=== PATIENT | male | born 1940 | race Caucasian/White ===

== ENCOUNTER → 2020-07-05 | Outpatient (CLI) | payer MEDICARE ==
[~2020-07-05] MED LIST: CLINDAMYCIN LOTION TOP; CLOB5CR TOP; E-Z-GAS II EFFERVESCENT PACKET (SODIUM BICARB./CITRIC ACID/SIMETHICONE) As Ordered ONE; E-Z-HD 98% w/w 340GM SUSP BTL As Ordered ONE; E-Z-PAQUE 96% w/w SUSP 176GM BTL As Ordered ONE; FISH5CAP PO; FLON0.054; IBUPOTC PO; TOBRSUS41 OU; [UNRECOGNIZED DRUG - OTHER] OU
--- NOTE | 2020-07-05 17:16 | REP ---
INDICATION: DYSPHAGIA. COMPARISON: None TECHNIQUE: This procedure was performed by Julienne Rivas [facility], under the direct supervision of Dr. Pichardo. Images were reviewed with Dr. Pichardo prior to dictation. Liquid barium was given in the erect position in order to perform a single contrast esophagram. FINDINGS: A single view PA chest x-ray is submitted as a wardsperson film. The superior mediastinal structures are midline. The heart size is within normal limits. The lungs are clear. The oral and pharyngeal stages of deglutition demonstrated laryngeal penetration the progresses to aspiration. Esophageal transport is prompt and efficient and there is no evidence of esophagitis, stricture, or mucosal ring. Due to the amount of aspiration without a cough response the procedure was stopped prior to evaluation for hiatal hernia or for gastroesophageal reflux could be done. IMPRESSION: 1. Aspiration without a cough response. 2. Limited esophagram due to aspiration. 0.1 minutes of fluoroscopy time was utilized for this procedure. Some fluoroscopic images are performed with last image hold technology. These images require no additional radiation. <Electronically signed by Julienne Rivas > 07/05/20 1656 <Electronically signed by Mario Pichardo > 07/05/20 1712
== END ==
LOC: M RAD 07:53
PROVIDERS: ATTEND Specialist
DX: R13.10 Dysphagia, unspecified (principal)

== ENCOUNTER → 2020-08-31 | Outpatient (CLI) | payer MEDICARE ==
--- NOTE | 2020-08-31 18:43 | REP ---
INDICATION: DYSPHAGIA. COMPARISON: The exam is compared to a previous esophagram performed on 07/05/2020. TECHNIQUE: This procedure was performed under the direct supervision of Dr. Hope. Images were reviewed with Dr. Hope. Liquid barium was administered in the erect position in order to perform a single contrast esophagram examination.. 0.1 minutes of fluoro time was utilized for this procedure. FINDINGS: A single view PA chest x-ray is submitted as a business continuity manager film. There is no change compared to a previous chest x-ray performed on 07/05/2020. During the oral and pharyngeal stages of deglutition the patient aspirated immediately. This is unchanged to the previous examination. The examination was then discontinued. The epiglottis is difficult to visualize, however, may not move appropriately. IMPRESSION: The patient aspirated the barium immediately. This is unchanged compared to the previous examination. The examination was then discontinued. The epiglottis is difficult to visualize, however, may not move appropriately. <Electronically signed by Drew Sanders > 08/31/20 1522 <Electronically signed by Jose Hope > 08/31/20 [id number]
== END ==
LOC: M RAD 08:56
PROVIDERS: ATTEND Specialist
DX: R13.10 Dysphagia, unspecified (principal)

== ENCOUNTER → 2020-09-15 | Outpatient (CLI) | payer MEDICARE ==
[~2020-09-15] MED LIST changes: +AZEL0.055 NARES; -E-Z-GAS II EFFERVESCENT PACKET (SODIUM BICARB./CITRIC ACID/SIMETHICONE) As Ordered ONE; -E-Z-HD 98% w/w 340GM SUSP BTL As Ordered ONE; -E-Z-PAQUE 96% w/w SUSP 176GM BTL As Ordered ONE; +ESOM0.1C PO; +FLUTISP; +HYDR12.55 PO; +LEVOTAB10 PO; +LOSA50TA5 PO; +NOXI1TAB PO; +NYST50SS SS; +OMEP40CA97 PO; +SING5CHW23 PO
== END ==
LOC: M LABSMTC 10:02
PROVIDERS: ATTEND Anesthesiology
DX: Z01.818 Encounter for other preprocedural examination (principal); Z11.52 Encounter for screening for COVID-19

== ENCOUNTER 2020-09-20 08:34 | Day surgery (SDC) | payer MEDICARE ==
[~2020-09-20] VITALS: Ht 167.6 cm; Wt 81.2 kg
[~2020-09-20 08:34] MED LIST changes: +LR 1,000 ML IV ONE
--- NOTE | 2020-09-20 10:25 | ECGEPIP ---
[facility] Test Date: 2020-09-20 Pat Name: NAOMI PERDUE Department: Room: - Gender: Male Taproom Attendant: ABIOLA : 1940 Requested By: LUCIA Rodríguez Order Number: [id number] Reading MD: Kelly Mckinley Measurements Intervals [place] Rate: 86 P: 50 WV: 144 QRS: -67 QRSD: 134 T: -9 QT: 382 QTc: 457 Interpretive Statements Normal sinus rhythm Left axis deviation LEFT ANTERIOR FASCICULAR BLOCK //Right bundle branch block/POSSIBLE RVH QTC PROLONGED REPOLAR CHANGES ANTERIOR LEADS ASSOC WITH RIGHT BUNDLE BRANCH BLOCK OR RIGHT VENTRICULAR HYPERTROPHY EXTEND OUT TO V4 -ABNORMAL NO PRIOR Electronically Signed on 09-20-2020 10:25:23 EDT by Kelly Mckinley
[2020-09-20] MEDS ORDERED: propofoL 200 MG/20 ML VIAL As Ordered ONE (11:04)
[2020-09-20] MEDS ORDERED: ROCURONIUM BROMIDE 50 MG/5 ML VIAL As Ordered ONE (11:05)
[2020-09-20] MEDS ORDERED: fentaNYL 100 MCG/2 ML INJECTION (J3010) As Ordered ONE (11:05)
[2020-09-20] MEDS ORDERED: dexameTHASONE 4 MG/ML 1ML VIAL (J1100 PER 1MG) As Ordered ONE (11:05)
[2020-09-20] MEDS ORDERED: LIDOCAINE 2% 100MG/5ML SDV (FOR ANES.) As Ordered ONE (11:05)
[2020-09-20] MEDS ORDERED: ONDANSETRON 4MG/2ML VIAL As Ordered ONE (11:05)
[2020-09-20] MEDS ORDERED: OXYMETAZOLINE 0.05% NASAL SPRAY (AFRIN) As Ordered ONE (11:52)
[2020-09-20] MEDS ORDERED: CETACAINE SPRAY 5GM As Ordered ONE (11:52)
[2020-09-20] MEDS ORDERED: EPINEPHrine 1MG/ML INJ 30ML MD-VIAL As Ordered ONE (11:52)
[2020-09-20] MEDS ORDERED: SUGAMMADEX SODIUM 500 MG/5 ML VIAL (BRIDION) As Ordered ONE (12:34)
[2020-09-20] MEDS ORDERED: ACETAMINOPHEN 1000MG 100ML IV BTL (OFIRMEV) (J0131 PER 10MG) As Ordered ONE (12:34)
[2020-09-20] MEDS ORDERED: METOCLOPRAMIDE INJ 10MG/2ML VIAL (J2765 PER 1) As Ordered ONE (12:34)
[2020-09-20] MEDS ORDERED: METOCLOPRAMIDE INJ 10MG/2ML VIAL (J2765 PER 1) IV PRN (13:15)
[2020-09-20] MEDS ORDERED: LR 1,000 ML IV SCH (13:15)
[2020-09-20] MEDS ORDERED: ONDANSETRON 4MG/2ML VIAL IV PRN (13:15)
[2020-09-20] MEDS ORDERED: fentaNYL 100 MCG/2 ML INJECTION (J3010) IV PRN (13:15)
[2020-09-20] MEDS ORDERED: ACETAMINOPHEN 500 MG TAB PO PRN (13:20)
[2020-09-20 14:05] VITALS: BP 133/72
--- NOTE | 2020-09-22 13:52 | RO ---
OPERATIVE NOTE DATE OF OPERATION: 09/20/2020 PREOPERATIVE DIAGNOSIS: Right hypopharyngeal mass. POSTOPERATIVE DIAGNOSIS: Right hypopharyngeal mass. PROCEDURE: Direct laryngoscopy with biopsy of a vallecular lower pharyngeal mass. SURGEON: Darin Faust M.D. SHOE FOLDER: None. ANESTHESIA: General. INDICATIONS FOR PROCEDURE: This is an 80-year-old year who presents with a sore throat for one year that seemed to be localized more to the right side. Office examination suggested the presence of fullness of the lateral aspect of the right vallecula along the base of tongue and lateral pharyngeal wall. Because of this suspicious area and failure to respond to any medical management, he is brought to the operating room for direct laryngoscopy. DESCRIPTION OF PROCEDURE: After satisfactory general endotracheal anesthesia was administered, the patient was placed in the usual position for head and neck endoscopy. Double-lightened Dedo laryngoscopy was inserted into the oropharynx. The scope was gently advanced forward into the center of the oropharynx and down behind the base of the tongue. Inspection of the left side was done first, as there appeared to be an area of friable tissue on the right that head already led to some bleeding. Complete inspection as done down to the glottis of which though it appeared somewhat mildly edematous posteriorly, it appeared to be normal. The scope was then advanced through the right vallecula lateral nasal wall and there appeared to be a granular, friable, and more ulcerative area than exophytic. There was no discrete formal fungating mass, but just an area of grainy tissue. It was this area that was biopsied with several punch biopsies. The scope was then advanced further. The epiglottis appeared to be free of any disease. Location of this lesion was felt to be the right lateral base of tongue and possible pharyngeal wall. After several biopsies were taken, the throat was suctioned and the scope was then removed. The patient was then awakened, extubated, and sent to recovery in satisfactory position pending results of the biopsy.
[2020-10-05] MEDS ORDERED: HYDR1SOL PO (09:20)
[2020-10-05] MEDS ORDERED: HYDR12CA PO (10:27)
[2020-10-05] MEDS ORDERED: AZEL0.05 OU (10:27)
[2020-10-05] MEDS ORDERED: AZEL0.055 NARES (10:27)
[2020-10-05] MEDS ORDERED: LOSA50TA88 PO (10:27)
[2020-10-05] MEDS ORDERED: D31000TA2 PO (10:27)
[2020-10-05] MEDS ORDERED: COVI30VI IM (10:27)
== END 2020-09-20 14:05 | disposition home or self-care (01) ==
LOC: M SDC 08:34
PROVIDERS: ATTEND Specialist
DX: C01 Malignant neoplasm of base of tongue (principal); R07.0 Pain in throat; R13.10 Dysphagia, unspecified; I10 Essential (primary) hypertension; M19.90 Unspecified osteoarthritis, unspecified site; R51.9 Headache, unspecified; Z85.46 Personal history of malignant neoplasm of prostate; Z92.3 Personal history of irradiation; Z79.899 Other long term (current) drug therapy
CPT/HCPCS: 31535; 88305; 88341; 88342; 93005; J0131; J1100; J2405; J2765; J3010

== ENCOUNTER → 2020-10-05 | Outpatient (CLI) | payer MEDICARE ==
[~2020-10-05] MED LIST changes: +AZEL0.05 OU; +COVI30VI IM; +D31000TA2 PO; +HYDR12CA PO; +HYDR1SOL PO; +LOSA50TA88 PO; -LR 1,000 ML IV ONE
--- NOTE | 2020-10-05 11:36 | RADONC.CN ---
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 He is seen for consideration of RT or chemoradiation to treat this. Diagnosis/Treatment History Oncologic History History of meningioma s/p resection @ [facility] 2018 History of prostate cancer s/p RT @ [facility] 2015 Early 2020: Notes onset of dysphagia to solids and liquids as well as pain in the throat and 30 lb unintentional weight loss. 07/05/20: Barium swallow (Dr. Faust) showing aspiration. 08/31/20: Repeat barium swallow with aspiration. 09/20/20: DL and biopsy of tongue base showing SCC, HPV/P16 pending (confirmed lab is doing this) No sectional imaging to date. Interval History Here with his , lives in the [facility]. He reports he is unable to take solid food without coughing. Currently intake is 2 boost/ensure daily. Has pain with swallowing. No trouble breathing or CP. He has some word finding difficulties since his craniotomy for meningioma. He used to lift weight and weigh 210 lbs, now ~180 lbs. Still has good energy levels, likes to work outdoors. Has a dentist in [place]. Past Medical History: Arthritis GERD HTN Prostate cancer Meningioma Past Surgical History: Craniotomy 2019 Family History: Sister lymphoma Social History: Never smoker Non-drinker Allergies / Meds Allergies: Coded Allergies: No Known Allergies (Unverified , 09/17/20) Home Meds Reported Medications Hydrocodone/Acetaminophen (Hydrocodone-Acetamn 7.5-325/15) 118 Ml Solution, 15 ML PO, ML 10/05/20 Losartan/Hydrochlorothiazide (Losartan-Hctz 50-12.5 mg Tab) 1 Each Tablet, 1 TAB PO DAILY, TAB 09/16/20 Montelukast Sodium (Singulair) 5 Mg Tab.chew, 10 MG PO DAILY, CHW 09/16/20 Fluticasone Propionate (Fluticasone Propionate) 16 Gm [place].susp, 1 SPRAY NA BID, #1 BOTTLE 09/16/20 Azelastine HCl (Azelastine HCl) 0.15% [place].pump, 2 SPRAY NARES BID for 30 Days, #30 ML 09/16/20 Levocetirizine Dihydrochloride (Levocetirizine Dihydrochloride) 5 Mg Tablet, 5 MG PO DAILY, TAB 09/16/20 Review of Systems Constitutional: Reports: Weight Loss; Denies: Fatigue Eyes: Denies: Pain HEENT: Reports: Ear Pain, Dysphagia, Sore Throat; Denies: Head Aches, Epistaxis Skin: Denies: Rash Pulmonary: Denies: Dyspnea, Cough Cardiovascular: Denies: Chest Pain, Palpitations Gastrointestinal: Denies: Abdominal Pain Genitourinary: Denies: Dysuria, Frequency Hematologic: Denies: Bruising Endocrine: Denies: Cold Intolerance Neurological: Reports: Change in Speech; Denies: Weakness, Numbness Psych: Reports: Mood Normal Vital Signs Ht 66 Wt 180 BMI 29 T 97.4 P 97 RR 16 BP 140/83 O2 98% Pain 2 Fatigue 0 General Exam: Positive: Alert, Cooperative, No Acute Distress Eye Exam: Positive: PERRLA, EOMI ENT EXAM: Positive: Atraumatic, Mucous membr. moist/pink, Tongue Midline, Other ENT (Complete oral cavity exam performed: There are no visible or palpable lesions in the buccal mucosa alveolar ridges, or FOM on bimanual exam. There are several broken and carious teeth. There are no lesions palpable in the tonsillar fossae, the tongue base was unable to be palpated due to gag. ) Neck Exam: Positive: Supple, Lymphadenopathy (There is a palpable right level II node, firm but mobile. There are 2 palpable left cervical nodes, level II superiorly and level III inferiorly. Both are firm and mobile. ) Chest Exam: Positive: Clear to auscultation, Normal air movement Heart Exam: Positive: Rate Normal, Regular Rhythm Abdomen Exam: Positive: Soft Extremity Exam: Negative: Edema Skin Exam: Positive: Nl turgor and temperature Neuro Exam: Positive: Normal Gait; Negative: Normal Speech (Mild word finding difficulties noted) Psych Exam: Positive: Mental status NL, Mood NL, Oriented x 3 Other Physical Findings Laryngoscopy: Patient provided verbal consent to be scoped. Cetacaine was introduced in the right nostril for anesthesia. The scope was inserted, there was copious mucus in the nasal vestibule. The scope was withdrawn and the patient cleared his nose. The scope was then easily passed to the right nasopharynx, there were no lesions present, the torus tubarius was visualized. The scope was then passed to the posterior wall which was pink and well-hydrated with no adherent mucus. The oropharynx was entered, there was marked asymmetry of the tongue base, the left appeared red and edematous and the right appeared sunken, not ulcerated with overlying pale mucosa. No exudate was appreciated. Midline, the vallecula had a globular erythematous appearance and this asymmetric mass abutted the lingual epiglottis directly. The epiglottis itself was red and edematous. The larynx was well visualized and was freely mobile with phonation, the BL pyriform sinuses and AE folds were well visualized and free of lesions. The scope was withdrawn and the patient tolerated this procedure well. Diagnostic and Laboratory Diagnostic Review Radiologic images, relevant labs and pathology reports were personally reviewed and discussed with Mr. Pascal. Assessment and Plan Impression Mr. Pascal is a 80 year old male never smoker with a recently diagnosed [id number] SCC of the base of tongue. He is seen for consideration of RT or chemoradiation to treat this. Stage [id number] tongue base SCC HPV pending Performance Status ECOG 1 Plan We had an extensive discussion with Mr. Pascal regarding the diagnosis at hand and available therapeutic options. He has a biopsy proven lesion reported as involving the right base of tongue, which appears abnormal on my exam today. I suspect the true extent of the lesion is greater than expected due to the surrounding inflammation I see in the contralateral structures, which in their own right appear abnormal as well. HPV status is pending. I emailed the lab to confirm this. I explained that in a never smoker one might expect HPV+ disease which would be favorable prognostically. He also has palpable lymph nodes, bilaterally, which raises concern for N2c (or N1 disease if HPV+) which would necessitate concurrent chemotherapy to effect the best chance of cure. He is seeing Dr. Koo for this later today. He has had no sectional imaging to date, and based on the exam findings, concern for primary bulk, and bilateral cervical nodes palpable, he will need both diagnostic CT neck with contrast and PET-CT to elucidate the extent of disease and inform treatment recommendations. Both CT and PET-CT will aid in radiation planning as well. For treatment I recommend 70 Gy in 35 fractions with VMAT planning. I anticipate need of weekly cisplatin but a final decision on this will be contingent upon imaging and Dr. Koo's assessment. We discussed the logistics of receiving radiation therapy in detail including the need for a 1-time planning session. Prior to simulation he needs dental clearance, for this they would like to go to their family dentist in [place]. I anticipate he will need extractions due to several broken teeth. Thus simulation is anticipated in ~ 2 weeks time to allow healing. We reviewed the side effects of treatment pain, difficulty swallowing, dysgeusia, xerostomia, fibrosis, ORN, fatigue, and lymphedema. Because of his clear aspiration on barium swallow, I will refer him to SCENIC DESIGNER immediately. I will also have a PEG tube placed prior to treatment. In the m eantime I encouraged him to drink 4-5 ensure daily, to stabilize his weight loss. After discussing the risks, benefits and alternatives to radiation therapy, Mr. Pascal was amenable to pursuing radiotherapy. All questions were answered to the patient's satisfaction. We instructed the patient that if there were any questions,concerns or changes in clinical status in the interim to contact us. Recommendations 70 Gy in 35 fractions with VMAT Dental clearance SCENIC DESIGNER referral PEG tube CT neck PET-CT Simulation pending imaging and dental clearance Chemotherapy per Dr. Koo Billing Statement Total time of [61] minutes was spent preparing for the visit [4], obtaining HPI [7], examining the patient [9], reviewing diagnostic tests [3], discussing management options [20], coordinating care [5], and writing this note [13]. BROOKLYN ODOM MD October 05, 2020 11:34
--- NOTE | 2020-10-06 08:37 | RADENCPD ---
Date/Time of Encounter Date of Encounter: October 06, 2020 Time of Encounter: 08:34 Encounter Mr. Pascal's cancer is strongly P16+, thus associated with HPV, which fits the clinical vignette very well. Given this I conveyed by phone that the prognosis is better even if he has el involvement. Clinical stage at the moment based on my exam yesterday is [id number] HPV+ stage II BROOKLYN ODOM MD October 06, 2020 08:37
== END ==
LOC: M ONCR 08:12
PROVIDERS: ATTEND General Practice
DX: C02.9 Malignant neoplasm of tongue, unspecified (principal); Z86.011 Personal history of benign neoplasm of the brain; Z85.46 Personal history of malignant neoplasm of prostate

== ENCOUNTER → 2020-10-14 | Outpatient (CLI) | payer MEDICARE ==
[~2020-10-14] MED LIST changes: +ONDA4TAB6 PO; +OXYC10TA12 PO
--- NOTE | 2020-10-14 16:08 | RADENCPD ---
Date/Time of Encounter Date of Encounter: October 14, 2020 Time of Encounter: 16:03 Encounter Duke came in for a brief follow up today due to complaint of increased swelling in the left neck and also increased dysphagia. notes he has been choking on thin liquids in the last 2 days. Duke reports that overall his pain with swallowing is improved with the oxycodone I prescribed but that he finds it hard to swallow still. PEG tube placement is pending. As is neck imaging. On exam he has a firm node in the right upper cervical chain as well as a large matted left level III conglomerate as before. The left sided node is tender. We discussed dietary modification and the necessity of PEG tube to limit his aspiration. ACID PUMPER evaluation is pending still. Also pending are his dental extractions which are necessary prior to chemoradiation. I suggested thick-it be mixed with his ensure, and that he limit his intake to soft foods and thickened liquids which are high in caloric content for now. I will follow up with him next week. BROOKLYN ODOM MD October 14, 2020 16:08
== END ==
LOC: M ONCR 14:34
PROVIDERS: ATTEND General Practice
DX: C01 Malignant neoplasm of base of tongue (principal)

== ENCOUNTER → 2020-10-19 | Outpatient (POV) | payer MEDICARE ==
[~2020-10-19] VITALS: Ht 167.6 cm; Wt 80.9 kg
[2020-10-19 10:15] VITALS: BP 146/79
--- NOTE | 2020-10-19 14:55 | IRCOV ---
[facility] IR Consult Office Visit IR Consult Office Visit DATE: October 19, 2020 REASON FOR CONSULTATION/CHIEF COMPLAINT: PEG tube placement. HISTORY OF PRESENT ILLNESS: 80-year-old male with 4 month long history of progressive difficulty swallowing and recent diagnosis of tongue cancer, is referred for gastrostomy catheter placement. Patient reports difficulty swallowing ensure, drinking milk or boost, which result in fits of coughing and sensation of choking. He has lost 30 pounds in 3 months. He is scheduled to undergo a PET scan, dental extraction and then start radiation therapy. Patient denies prior gastric ulcer, hematemesis, melena or abdominal surgeries. Patient denies gastroesophageal reflux. ALLERGIES: Please see below. HOME MEDICATIONS: Please see below. PAST MEDICAL HISTORY: Meningioma, surgically resected in 2019 Prostate cancer Arthritis GERD Hypertension PAST SURGICAL HISTORY: Craniotomy 2019 FAMILY HISTORY: Noncontributory. SOCIAL HISTORY: Never smoked. No alcohol or drugs. REVIEW OF SYSTEMS: Otherwise negative. PHYSICAL EXAMINATION: VITAL SIGNS: Please see below. GENERAL APPEARANCE: Appears well. Comfortable at rest. Normal speech. HEENT: No scleral icterus. RESPIRATORY: Normal breathing at rest. CARDIOVASCULAR: Normal rate. ABDOMEN: Non-distended. Soft nontender. No pulsatile mass. EXTREMITIES: Moving all 4 extremities. NEUROLOGICAL: Alert and oriented. PSYCHIATRIC: Appropriate to circumstance. LABORATORY DATA: 10/05/2020 hemoglobin 14.3 hematocrit 44.6 WBC 9.7 platelets 335 sodium 140 potassium 4.2 BUN 19 creatinine 0.78 Imaging: I personally reviewed the CT abdomen without and with contrast performed 09/12/2013. Stomach located below the diaphragm. ASSESSMENT/PLAN: 80-year-old male with tongue cancer, progressive difficulty swallowing, aspiration and weight loss, scheduled to undergo radiation therapy. We discussed the risks and benefits of gastrostomy placement and patient is agreeable to proceed. We'll schedule the patient for a G-tube placement. I spent 30 minutes reviewing patient's records, imaging and in consultation with the patient. Thank you for this referral. Cc Dr. Maharaj Allergies Coded Allergies: No Known Allergies (Unverified , 09/17/20) Home Medications Scheduled Azelastine HCl (Azelastine HCl), 1 DROP OU BID, (Reported) Azelastine HCl (Azelastine HCl), 2 SPRAY NARES BID, (Reported) Cholecalciferol (Vitamin D3) (Vitamin D3), 5,000 UNITS PO BID, (Reported) Fluticasone Propionate (Fluticasone Propionate), 2 SPRAY NA DAILY, (Reported) Hydrochlorothiazide (Hydrochlorothiazide), 1 CAP PO DAILY, (Reported) Levocetirizine Dihydrochloride (Levocetirizine Dihydrochloride), 5 MG PO DAILY, (Reported) Losartan Potassium (Losartan Potassium), 1 TAB PO DAILY, (Reported) Montelukast Sodium (Singulair), 10 MG PO DAILY, (Reported) Scheduled PRN Ondansetron (Ondansetron Odt), 4 MG PO TIDP PRN for nausea/vomiting Oxycodone HCl (Oxycodone HCl), 1 TAB PO QIDP PRN for pain Miscellaneous Medications Covid-19 Vacc, Mrna([employer])/Pf ([employer] Covid19 Vacc (Unapprov)), 30 MCG IM, (Reported) Discontinued Medications Hydrocodone/Acetaminophen (Hydrocodone-Acetamn 7.5-325/15), 5-10 ML PO Q6HP PRN for PAIN LEVEL 5-10, (Reported) VS, I&O, 24H, Fishbone Vital Signs/I&O Vital Signs Date Time Temp Pulse Resp B/P (MAP) Pulse Ox O2 Delivery O2 Flow Rate FiO2 10/19/20 10:15 98.1 85 80 146/79 (101) 97 [address] Air RO YADAV MD October 19, 2020 14:55
== END ==
LOC: M IRPOV 09:49
PROVIDERS: ATTEND Radiology Diagnostic Radiology
DX: C02.9 Malignant neoplasm of tongue, unspecified (principal); R13.10 Dysphagia, unspecified; R63.4 Abnormal weight loss; K21.9 Gastro-esophageal reflux disease without esophagitis; I10 Essential (primary) hypertension; Z79.899 Other long term (current) drug therapy; Z85.46 Personal history of malignant neoplasm of prostate

== ENCOUNTER 2020-10-26 09:34 | Emergency (ER) | payer MEDICARE ==
[~2020-10-26] VITALS: Ht 167.6 cm; Wt 76.7 kg
[~2020-10-26 09:34] MED LIST changes: +OMEP40CA4 PO; -OMEP40CA97 PO
[2020-10-26] MEDS ORDERED: NS 1,000 ML IV ONE (11:25)
[2020-10-26] MEDS ORDERED: ONDANSETRON 4MG/2ML VIAL IV ONE (11:25)
--- NOTE | 2020-10-26 12:05 | REP ---
INDICATION: nausea, vomiting ? aspiration COMPARISON: None. TECHNIQUE: Upright view of the chest with supine and upright views of the abdomen and pelvis. FINDINGS: Frontal upright view of the chest demonstrates no acute cardiopulmonary process or free air below the diaphragm to suspect pneumoperitoneum. Supine and upright views of the abdomen and pelvis demonstrate nonspecific bowel gas pattern without obstruction or perforation. No organomegaly. No abnormal calcifications. Phleboliths identified in the pelvis. Skeletal structures normal for age. Incidental 3 mm foreign body overlying the right side of the abdomen likely chronic. IMPRESSION: Nonspecific bowel gas pattern. <Electronically signed by Peter Cohen > 10/26/20 120
[2020-10-26 12:24] LABS: BASO % 0.5 % (0.0-1.0); EOS # 0.1 10^3/uL (0.0-0.5); EOS % 0.6 % (0.0-3.0); HEMATOCRIT 44.6 % (42.0-52.0); HEMOGLOBIN 14.7 g/dl (13.5-17.5); LYMPH # 1.2 10^3/uL (1.5-5.0); MEAN CORPUSCULAR HEMOGLOBIN 28.3 pg (27.0-33.0); MEAN CORPUSCULAR VOLUME 85.8 fl (80.0-96.0); MONO # 0.6 10^3/uL (0.0-0.8); MONO % 6.8 % (2.0-8.0); NEUTROPHILS # 6.2 10^3/uL (1.5-8.5); NEUTROPHILS % 76.5 % (36.0-66.0); PLATELET COUNT, AUTOMATED 425 10^3/uL (150-450); WHITE BLOOD COUNT 8.1 10^3/uL (4.0-10.0)
[2020-10-26 12:49] LABS: ALBUMIN 3.9 GM/DL (3.2-5.2); ALT/SGPT 54 U/L (12-78); BILIRUBIN,DIRECT 0.2 MG/DL (0.0-0.2); BILIRUBIN,TOTAL 0.7 MG/DL (0.2-1.0); BLOOD UREA NITROGEN 22 MG/DL (7-18); CALCIUM LEVEL 9.4 MG/DL (8.8-10.2); CARBON DIOXIDE LEVEL 27 MEQ/L (21-32); CHLORIDE LEVEL 97 MEQ/L (98-107); CREATININE FOR GFR 0.81 MG/DL (0.70-1.30); GLOMERULAR FILTRATION RATE > 60.0 (>35); GLUCOSE, FASTING 93 MG/DL (70-100); PHOSPHORUS LEVEL 2.8 MG/DL (2.5-4.9); POTASSIUM SERUM 3.9 MEQ/L (3.5-5.1); SODIUM LEVEL 134 MEQ/L (136-145); TOTAL PROTEIN 7.7 GM/DL (6.4-8.2)
[2020-10-26] MEDS ORDERED: VITA500C24 PO (13:09)
[2020-10-26 14:38] VITALS: BP 164/84
[2020-10-26 14:41] LABS: APPEARANCE, URINE CLEAR (CLEAR); BACTERIA, URINE AUTO NEGATIVE (NEGATIVE); BILIRUBIN, URINE AUTO NEGATIVE (NEGATIVE); BLOOD, URINE BLOOD NEGATIVE (NEGATIVE); COLOR, URINE YELLOW (YELLOW); GLUCOSE, URINE (UA) AUTO NEGATIVE (NEGATIVE); KETONE, URINE AUTO 2+ mg/dL (NEGATIVE); LEUKOCYTE ESTERASE, URINE AUTO NEGATIVE (NEGATIVE); MUCUS, URINE SMALL (NEGATIVE); NITRITE, URINE AUTO NEGATIVE (NEGATIVE); PROTEIN, URINE AUTO NEGATIVE (NEGATIVE); RBC, URINE AUTO 0 /HPF (0-3); SPECIFIC GRAVITY URINE AUTO 1.029 (1.002-1.035); SQUAMOUS EPITHELIAL CELL UR AU 0 /HPF (0-6); UROBILINOGEN, URINE AUTO 0.2 mg/dL (0.0-2.0); WBC, URINE AUTO 2 /HPF (0-3)
== END 2020-10-26 14:42 | disposition home or self-care (01) ==
LOC: M ED 09:34
DX: R11.2 Nausea with vomiting, unspecified (principal); C14.0 Malignant neoplasm of pharynx, unspecified; K59.00 Constipation, unspecified; Z79.891 Long term (current) use of opiate analgesic; Z79.899 Other long term (current) drug therapy; Z88.1 Allergy status to other antibiotic agents
CPT/HCPCS: 74021; 80048; 80076; 81001; 84100; 85025; 96361; 96374; 99283; J2405

== ENCOUNTER 2020-12-14 08:31 | Outpatient (RCR) | payer MEDICARE ==
--- NOTE | 2020-12-03 08:37 | RADENCPD ---
Date/Time of Encounter Date of Encounter: Dec 03, 2020 Time of Encounter: 08:31 Encounter Spoke to Germain and his regarding care of his OPX cancer. He has met with palliative care and clarified his goals, he does not want a PEG tube, or chemotherapy, or dental extractions. In light of this I discussed that palliative RT, while not curative of this cancer could improve his quality of life and forestall progression for some mark e. He is willing to undergo this with the above stipulations met. I discussed that there will be some short term mucosal side effects which should be manageable. There is little risk of lasting dysphagia. I recommended 3-4 weeks of daily treatment. I discussed obtaining a diagnostic scan prior to planning to inform extent of disease, they prefer not to do this, which in the setting of palliative intent treatment is reasonable. They stated that they are not completely decided on enrolling in hospice at this time. I explained that if they want to proceed with the RT, they would need to defer this decision until completion of treatment. They are in agreement to proceed. Will schedule simulation. BROOKLYN ODOM MD Dec 03, 2020 08:37
[~2020-12-14 08:31] MED LIST changes: +VITA500C24 PO
== END 2020-12-25 ==
LOC: M ONCR 08:31
PROVIDERS: ATTEND General Practice
DX: C01 Malignant neoplasm of base of tongue (principal)

== ENCOUNTER → 2021-01-25 | Outpatient (RCR) | payer MEDICARE ==
[~2021-01-25] MED LIST changes: +ATIV1TAB10; +ATIV1TAB10 PO; +BISA10SU27 PR; +DOCU5LIQ PO; +LIDO2SOL9 PO; +LOSA50TA28 PO; -LOSA50TA88 PO; +NAPR-855; +NAPR220C23 PO; +NS 1,000 ML IV SCH; +NYST50SS SSP; +OXYC1SOL3 PO; +PRAZ1CAP; +SENO8.6T5 PO; +dexameTHASONE 4 MG/ML 1ML VIAL (J1100 PER 1MG) IV ONE
== END ==
LOC: M ONCR 01-04 14:32
PROVIDERS: ATTEND General Practice
DX: C01 Malignant neoplasm of base of tongue (principal)

== ENCOUNTER 2021-01-27 09:02 | Outpatient (RCR) | payer MEDICARE ==
[~2021-01-27 09:02] MED LIST changes: -ATIV1TAB10; -ATIV1TAB10 PO; -LOSA50TA28 PO; +LOSA50TA88 PO; -NAPR-855; -NAPR220C23 PO; -NS 1,000 ML IV SCH; -NYST50SS SSP; -PRAZ1CAP; -dexameTHASONE 4 MG/ML 1ML VIAL (J1100 PER 1MG) IV ONE
[2021-01-27] MEDS ORDERED: NYST50SS SSP (09:56)
[2021-02-02] MEDS ORDERED: ATIV1TAB10 PO (14:07)
[2021-02-02] MEDS ORDERED: NAPR220C23 PO (14:07)
[2021-02-02] MEDS ORDERED: ATIV1TAB10 (14:09)
[2021-02-02] MEDS ORDERED: PRAZ1CAP (14:09)
[2021-02-02] MEDS ORDERED: NAPR-855 (14:09)
== END 2021-02-24 ==
LOC: M ONCR 09:02
PROVIDERS: ATTEND General Practice
DX: C01 Malignant neoplasm of base of tongue (principal)

== ENCOUNTER → 2021-02-02 | Outpatient (CLI) | payer MEDICARE ==
[~2021-02-02] MED LIST changes: +ATIV1TAB10; +ATIV1TAB10 PO; +NAPR-855; +NAPR220C23 PO; +NYST50SS SSP; +PRAZ1CAP
--- NOTE | 2021-02-02 14:24 | RADENCPD ---
Date/Time of Encounter Date of Encounter: Feb 02, 2021 Time of Encounter: 14:20 Encounter Herb came in for a post treatment visit today. Completed RT last week. He has some persistent mild dysphagia and odynophagia still able to take soft foods. He has been taking nystatin. His main complaint is constipation. Took a suppository yesterday and had a massive bowel movement with ensuing cramps and lightheadedness. On exam weight is down 3 lbs OPX has scant thrush right maxillary ridge. Healing soft palate mucositis. Neck is CTCAE grade 1 dry desquamation, right cervical node is very soft minimal size. Assessment: He is healing well. Emollient cream to necks. Continue viscous l idocaine. Continue nystatin swish and spit TID. Prioritize hydration and supplemental calories with ensure. Follow up in 1 week. BROOKLYN ODOM MD Feb 02, 2021 14:24
== END ==
LOC: M ONCR 13:18
PROVIDERS: ATTEND General Practice
DX: C01 Malignant neoplasm of base of tongue (principal)

== ENCOUNTER → 2021-02-08 | Outpatient (CLI) | payer MEDICARE | LOC: M ONCR 12:54 | PROVIDERS: ATTEND General Practice | DX: C01 Malignant neoplasm of base of tongue (principal); Z92.3 Personal history of irradiation ==

== ENCOUNTER → 2021-03-07 | Outpatient (CLI) | payer MEDICARE ==
--- NOTE | 2021-03-07 13:39 | RADENCPD ---
Date/Time of Encounter Date of Encounter: Mar 07, 2021 Time of Encounter: 13:36 Encounter Herb came in for a brief follow up today now 1 month post RT. He is eating well. Minimal pain and dysphagia only to meat. Some residual dry mouth and dysgeusia. On exam he has no oral lesions, thrush or mucositis. On palpation there is no mass or induration at the tongue base. The neck is without adenopathy. Minimal residual redness left neck. Overall he is recovering well with no residual palpable disease. Discussed following up 3 months post-treatment with PET-CT and laryngoscopic evaluation to confirm CR. BROOKLYN ODOM MD Mar 07, 2021 13:39
== END ==
LOC: M ONCR 12:46
PROVIDERS: ATTEND General Practice
DX: C01 Malignant neoplasm of base of tongue (principal); Z92.3 Personal history of irradiation

== ENCOUNTER → 2021-08-23 | Outpatient (CLI) | payer MEDICARE ==
[~2021-08-23] MED LIST changes: -D31000TA2 PO; +LOSA50TA28 PO; -LOSA50TA88 PO; +VITA100093 PO
== END ==
LOC: M ONCR 07:57
PROVIDERS: ATTEND General Practice
DX: C01 Malignant neoplasm of base of tongue (principal); R13.10 Dysphagia, unspecified; Z88.2 Allergy status to sulfonamides; Z85.46 Personal history of malignant neoplasm of prostate; Z92.3 Personal history of irradiation
CPT/HCPCS: 31575; G0463

== ENCOUNTER → 2022-01-02 | Outpatient (CLI) | payer MEDICARE | LOC: M RAD 08:44 | PROVIDERS: ATTEND General Practice | DX: C01 Malignant neoplasm of base of tongue (principal) ==

== ENCOUNTER → 2022-01-06 | Outpatient (CLI) | payer MEDICARE | LOC: M ONCR 07:53 | PROVIDERS: ATTEND General Practice | DX: Z08 Encounter for follow-up examination after completed treatment for malignant neoplasm (principal); Z85.810 Personal history of malignant neoplasm of tongue; R93.3 Abnormal findings on diagnostic imaging of other parts of digestive tract; Z88.0 Allergy status to penicillin; Z85.46 Personal history of malignant neoplasm of prostate; Z86.011 Personal history of benign neoplasm of the brain; Z92.3 Personal history of irradiation; Z79.1 Long term (current) use of non-steroidal anti-inflammatories (NSAID); Z79.899 Other long term (current) drug therapy; K02.9 Dental caries, unspecified; K08.89 Other specified disorders of teeth and supporting structures | CPT/HCPCS: 31575; G0463 ==

== ENCOUNTER → 2022-03-16 | Outpatient (CLI) | payer MEDICARE ==
[~2022-03-16] VITALS: Ht 170.2 cm; Wt 76.3 kg
[~2022-03-16] MED LIST changes: +NAPR-855 PO; +NAPR375T4 PO; +PRAZ1CAP PO; +SENN-80 PO
[2022-03-16 09:08] VITALS: BP 141/77
== END ==
LOC: M PAL 08:37
PROVIDERS: ATTEND Nurse Practitioner Adult Health
DX: C01 Malignant neoplasm of base of tongue (principal); G89.3 Neoplasm related pain (acute) (chronic); K59.00 Constipation, unspecified; R13.10 Dysphagia, unspecified; Z92.3 Personal history of irradiation; Z51.5 Encounter for palliative care; Z66 Do not resuscitate; Z85.46 Personal history of malignant neoplasm of prostate; Z79.899 Other long term (current) drug therapy; Z88.1 Allergy status to other antibiotic agents

== ENCOUNTER → 2022-03-28 | Outpatient (CLI) | payer MEDICARE | LOC: M RAD 12:42 | PROVIDERS: ATTEND General Practice | DX: C01 Malignant neoplasm of base of tongue (principal) ==

== ENCOUNTER → 2022-04-07 | Outpatient (CLI) | payer MEDICARE | LOC: M ONCR 07:57 | PROVIDERS: ATTEND General Practice | DX: C01 Malignant neoplasm of base of tongue (principal); Z79.1 Long term (current) use of non-steroidal anti-inflammatories (NSAID); Z79.899 Other long term (current) drug therapy; Z85.841 Personal history of malignant neoplasm of brain; Z85.46 Personal history of malignant neoplasm of prostate; Z88.0 Allergy status to penicillin; Z92.3 Personal history of irradiation | CPT/HCPCS: 31575; G0463 ==

== ENCOUNTER → 2022-09-06 | Outpatient (CLI) | payer MEDICARE ==
[~2022-09-06] MED LIST changes: +FLUT50SP17; -FLUTISP; +LIDO2SOBTL PO; -LIDO2SOL9 PO; +NYST-38 SS; +NYST-38 SSP; -NYST50SS SS; -NYST50SS SSP; +SENN-186 PO; -SENN-80 PO
== END ==
LOC: M PAL 07:44
PROVIDERS: ATTEND Nurse Practitioner Family
DX: C01 Malignant neoplasm of base of tongue (principal); R19.7 Diarrhea, unspecified; R13.10 Dysphagia, unspecified; Z51.5 Encounter for palliative care; Z85.46 Personal history of malignant neoplasm of prostate; Z85.828 Personal history of other malignant neoplasm of skin; F41.9 Anxiety disorder, unspecified; Z66 Do not resuscitate; Z88.1 Allergy status to other antibiotic agents; Z79.899 Other long term (current) drug therapy

== ENCOUNTER → 2022-10-06 | Outpatient (CLI) | payer MEDICARE, OTHER ==
[2022-10-06 09:57] LABS: FREE T4 1.13 NG/DL (0.89-1.76); THYROID STIMULATING HORMONE 3.823 uIU/ML (0.55-4.78)
== END ==
LOC: M ONCR 08:03
PROVIDERS: ATTEND General Practice
DX: Z08 Encounter for follow-up examination after completed treatment for malignant neoplasm (principal); Z85.810 Personal history of malignant neoplasm of tongue; S02.5XXA Fracture of tooth (traumatic), initial encounter for closed fracture; Z79.1 Long term (current) use of non-steroidal anti-inflammatories (NSAID); Z79.51 Long term (current) use of inhaled steroids; Z79.899 Other long term (current) drug therapy; Z88.1 Allergy status to other antibiotic agents; Z92.3 Personal history of irradiation
CPT/HCPCS: 31575; 36415; 84439; 84443; G0463

== ENCOUNTER → 2023-09-20 | Outpatient (CLI) | payer OTHER ==
[~2023-09-20] MED LIST changes: -FLUT50SP17; +FLUTISP; +LIDO100S29 PO; -LIDO2SOBTL PO; +MONT5TAB7 PO; -SING5CHW23 PO; +TRIA1CR80 TOP
== END ==
LOC: M ONCR 08:12
PROVIDERS: ATTEND General Practice
DX: C01 Malignant neoplasm of base of tongue (principal); C44.300 Unspecified malignant neoplasm of skin of unspecified part of face; C44.40 Unspecified malignant neoplasm of skin of scalp and neck; C44.602 Unspecified malignant neoplasm of skin of right upper limb, including shoulder; L73.9 Follicular disorder, unspecified; K08.109 Complete loss of teeth, unspecified cause, unspecified class; R13.10 Dysphagia, unspecified; F41.8 Other specified anxiety disorders; Z51.5 Encounter for palliative care; Z92.3 Personal history of irradiation; Z88.1 Allergy status to other antibiotic agents; Z79.1 Long term (current) use of non-steroidal anti-inflammatories (NSAID); Z79.51 Long term (current) use of inhaled steroids; Z79.899 Other long term (current) drug therapy; Z85.46 Personal history of malignant neoplasm of prostate
CPT/HCPCS: 31575; G0463

== ENCOUNTER → 2023-09-20 | Outpatient (CLI) | payer MEDICARE, OTHER ==
[~2023-09-20] VITALS: Ht 167.6 cm; Wt 74.0 kg
[2023-09-20 08:03] VITALS: BP 138/77; O2SAT 98
== END ==
LOC: M PAL 07:44
PROVIDERS: ATTEND Nurse Practitioner Adult Health
DX: C44.40 Unspecified malignant neoplasm of skin of scalp and neck (principal); C01 Malignant neoplasm of base of tongue; R13.10 Dysphagia, unspecified; F41.8 Other specified anxiety disorders; Z51.5 Encounter for palliative care; Z79.1 Long term (current) use of non-steroidal anti-inflammatories (NSAID); Z79.51 Long term (current) use of inhaled steroids; Z79.899 Other long term (current) drug therapy; Z85.46 Personal history of malignant neoplasm of prostate; Z88.1 Allergy status to other antibiotic agents; Z92.3 Personal history of irradiation

== ENCOUNTER 2023-09-28 12:44 | Outpatient (RCR) | payer OTHER ==
[2023-09-28] MEDS ORDERED: GNP1CRE5 TOP (13:57)
== END 2023-10-26 ==
LOC: M ONCR 12:44
PROVIDERS: ATTEND General Practice
DX: Z51.0 Encounter for antineoplastic radiation therapy (principal); C44.319 Basal cell carcinoma of skin of other parts of face

== ENCOUNTER 2023-11-02 07:50 | Outpatient (RCR) | payer OTHER ==
[~2023-11-02 07:50] MED LIST changes: -AZEL0.055 NARES; +AZEL1SPR4 NARES; -ESOM0.1C PO; +ESOM20CA2 PO; +GNP1CRE5 TOP; +ONDA-282 PO; -ONDA4TAB6 PO
== END 2023-11-25 ==
LOC: M ONCR 07:50
PROVIDERS: ATTEND General Practice
DX: Z51.0 Encounter for antineoplastic radiation therapy (principal); C44.319 Basal cell carcinoma of skin of other parts of face

== ENCOUNTER → 2023-11-14 | Outpatient (CLI) | payer OTHER | LOC: M SOG 08:18 | PROVIDERS: ATTEND Physician Assistant | DX: M25.512 Pain in left shoulder (principal) ==

== ENCOUNTER → 2023-12-03 | Outpatient (CLI) | payer OTHER | LOC: M ONCR 07:44 | PROVIDERS: ATTEND General Practice | DX: M25.512 Pain in left shoulder (principal); L58.9 Radiodermatitis, unspecified ==

== ENCOUNTER → 2024-06-04 | Outpatient (CLI) | payer MEDICARE ==
[~2024-06-04] MED LIST changes: +CLIN1GEL55 TP; +CLIN2CR PV; +NAPR-1404 PO; -NAPR375T4 PO
== END ==
LOC: M ONCR 07:47
PROVIDERS: ATTEND General Practice
DX: C01 Malignant neoplasm of base of tongue (principal); R13.10 Dysphagia, unspecified; Z92.3 Personal history of irradiation; Z86.011 Personal history of benign neoplasm of the brain; Z85.828 Personal history of other malignant neoplasm of skin; Z85.46 Personal history of malignant neoplasm of prostate; Z88.1 Allergy status to other antibiotic agents; Z79.899 Other long term (current) drug therapy; Z79.1 Long term (current) use of non-steroidal anti-inflammatories (NSAID); Z79.51 Long term (current) use of inhaled steroids
CPT/HCPCS: 31575; G0463

== ENCOUNTER → 2024-12-30 | Outpatient (CLI) | payer MEDICARE ==
[~2024-12-30] MED LIST changes: +FLUO0.1C7 TOP; +HYDR12.510 PO; -HYDR12CA PO; +SENN-225 PO; -SENO8.6T5 PO
== END ==
LOC: M ONCR 07:35
PROVIDERS: ATTEND General Practice
DX: L82.1 Other seborrheic keratosis (principal); D18.09 Hemangioma of other sites
CPT/HCPCS: 11102; 11103; 88305; G0463